=== PATIENT | male | born 1975 | race Two or more races ===

== ENCOUNTER 2020-05-08 08:00 | Outpatient (REF) | payer OTHER, SELFPAY ==
[2020-05-08 08:45] LABS: COVID-19 Test Negative (Negative)
== END 2020-05-08 08:01 | disposition home or self-care (01) ==
LOC: HO.EMPCOV 08:00
PROVIDERS: Visit Provider Internal Medicine
DX: Z20.828 Contact with and (suspected) exposure to other viral communicable diseases (principal)
CPT/HCPCS: 87635; C9803

== ENCOUNTER 2020-05-13 08:50 | Outpatient (REF) | payer OTHER, SELFPAY ==
[2020-05-13 09:54] LABS: COVID-19 Test Negative (Negative)
== END 2020-05-13 08:51 | disposition home or self-care (01) ==
LOC: HO.EMPCOV 08:50
PROVIDERS: Visit Provider Internal Medicine
DX: Z20.828 Contact with and (suspected) exposure to other viral communicable diseases (principal)
CPT/HCPCS: 87635; C9803

== ENCOUNTER 2020-05-17 10:07 | Outpatient (REF) | payer OTHER, SELFPAY ==
[2020-05-18 11:40] LABS: COVID-19 Test Negative (Negative); IDNOW Serial# 55D5AD1C
== END 2020-05-17 10:08 | disposition home or self-care (01) ==
LOC: HO.EMPCOV 10:07
PROVIDERS: Visit Provider Internal Medicine
DX: Z20.828 Contact with and (suspected) exposure to other viral communicable diseases (principal)
CPT/HCPCS: 87635; C9803

== ENCOUNTER 2020-08-30 15:10 | Outpatient (REF) | payer OTHER, SELFPAY ==
[2020-08-30 16:07] LABS: COVID-19 Test Negative (Negative); IDNOW Serial# 55D5AD1C
== END 2020-08-30 15:11 | disposition home or self-care (01) ==
LOC: HO.EMPCOV 15:10
PROVIDERS: Visit Provider Internal Medicine
DX: Z20.822 Contact with and (suspected) exposure to COVID-19 (principal)
CPT/HCPCS: 36415; 87635; C9803

== ENCOUNTER 2024-06-27 08:34 | Emergency (ER) | payer OTHER, SELFPAY ==
[2024-06-27] VITALS (9 sets, daily range): BP systolic 112–129; BP diastolic 71–82; PULSE 85–96; RESP 16–25; TEMP 36.3–37; O2SAT 94–98; BMI 37.0
--- NOTE | ~2024-06-27 | CT_ITS ---
EXAMINATION: CT ANGIOGRAM NECK. CT ANGIOGRAM BRAIN. CLINICAL INFORMATION: Dizziness COMPARISON: None available. TECHNIQUE: Contiguous axial images through the brain from the skull base to the vertex using 5 mm collimation without the IV contrast administration. Sagittal and coronal reformatted images acquired. Continues axial images through the aortic arch to the skull base using 2 mm collimation following the IV contrast administration during the arterial phase. Total of 70 cc Omnipaque 350 strength given without reported immediate complications. Sagittal and coronal reformatted images acquired. Maximum intensity projections acquired. Vessels of the neck and vessels of the [place] included. The degree of stenosis determined by NASCET criteria. This CT examination was performed using dose optimization techniques as appropriate, variously including the following: *Automated exposure control *Adjustment of mA and/or kV according to patient size This includes techniques or standardized protocols for targeted exams where dose is matched to indication/reason for exam; i.e. extremities or head) *Use of iterative reconstruction technique DLP: 2564 mGy centimeter. FINDINGS: CT brain: No acute intracranial hemorrhage, mass effect, midline shift, hydrocephalus or herniation. Brooks-white matter differentiation is normal. Posterior cranial fossa contents demonstrated no acute intracranial hemorrhage or mass effect. There is a large retention cysts versus polyp, left maxillary sinus. Tympanic cavities and mastoid cells are aerated. Bony pelvis intact. Skull base is intact. CT angiogram aortic arch: Normal diameter. Normal patency. No focal stenosis. No intimal flap. The main branches are patent. CT angiogram neck: Right CCA: Normal patency. No focal stenosis. No intimal flap. Right ICA: Normal patency. No focal stenosis. No intimal flap. Left CCA: Normal patency. No focal stenosis. No intimal flap. Left ICA: Normal patency. No focal stenosis. No intimal flap. V1/V 2 segments: Normal patency. No focal stenosis. No intimal flap. Left vertebral artery is dominant. The origin is at the subclavian artery. CT angiogram brain: Anterior cerebral circulation: ICAs: Normal patency. No focal stenosis. No abrupt cut off. MCA's: Normal patency. No focal stenosis. No abrupt cut off. Bifurcation/trifurcation demonstrated normal vascular irregularity. ACAs: No focal stenosis. No abrupt cut off. Small caliber right A1 segment. Ophthalmic arteries: Normal patency. Anterior communicating artery: Patent. Right posterior communicating artery is patent with small caliber. Posterior cerebral circulation: V3/V4 segments: Normal patency. No focal stenosis. No abrupt cut off. No intimal flap. Right anterior inferior cerebellar and right posterior inferior cerebellar arteries demonstrated a common trunk. Left posterior inferior cerebellar artery is patent. Left anterior inferior cerebellar artery is patent with small caliber. Basilar artery: Normal patency. No focal stenosis. No intimal flap. Superior cerebellar arteries: Patent. web content director: Normal patency. No focal stenosis. No abrupt cut off. Ancillary findings: Normal patency without intraluminal filling defects within the main cerebral venous sinuses. Multilevel cervical spondylosis. Ossification of the posterior longitudinal ligament at C2-3 resulting in central spinal canal narrowing. CT/CT angio head neck IMPRESSION: No high degree stenosis or dissection, vessels of the neck. No main cerebral artery occlusion or embolus. No gross aneurysm, cerebral. Electronically signed by: Jian Manriquez MD 06/27/2024 11:59 AM EST
--- NOTE | ~2024-06-27 | XR_ITS ---
EXAMINATION: XR CHEST CLINICAL INFORMATION: chest pain COMPARISON: None available. TECHNIQUE: 2 views of the chest were obtained. FINDINGS: The cardiac, hilar, and mediastinal contours are normal. Lungs demonstrate opacity in the right middle lobe distribution suggesting pneumonia. There is loss of the right heart border. The left lung is clear. There is no pneumothorax or pleural effusion. There is no focal osseous or soft tissue abnormality. Prior fixation hardware left clavicle. Mild degenerative changes throughout the spine. XR/XR chest 2V IMPRESSION: Right middle lobe pneumonia suspected. No effusions. Left lung clear. Electronically signed by: Marino Scott MD 06/27/2024 09:21 AM [facility]
--- NOTE | 2024-06-27 08:38 | ECG_ITS ---
Test Reason : CHEST PAIN Blood Pressure : */* mmHG Vent. Rate : 87 BPM Atrial Rate : 87 BPM P-R Int : 164 ms QRS Dur : 84 ms QT Int : 354 ms P-R-T Axes : 69 -32 77 degrees QTcB Int : 425 ms Normal sinus rhythm Left axis deviation Cannot rule out Anterior infarct , age undetermined Abnormal ECG No previous ECGs available Referred By: Generic ED Physician Electronically Signed By: Ha Posadas
--- NOTE | 2024-06-27 09:24 | ED_ITS ---
HPI - Chest Pain General Chief Complaint: Chest Pain Stated Complaint: Chest pain, vomiting Time Seen by Provider: 06/27/24 09:19 Source: patient Mode of arrival: ambulatory Limitations: no limitations History of Present Illness ED Provider: CHANCE CRUZ PA-C HPI narrative: 49 year old male with pmhx significant for DM presents to the ED today for evaluation of dizziness, vomiting, and chest pain which began this morning while at work. Admits to acute onset dizziness, described as a room spinning sensation. Reports one episode of vomiting. After this resolved, he began to have sternal chest pain which has continued, prompting him to come to the ED for further evaluation. Chest pain does not radiate. Pain has been improving since onset. No clear exacerbating or reliving factors. Associated SOB. No CAD history. No hx of similar. Denies fever, chills, sore throat, palpitations, wheezing, abd pain, diarrhea, vision changes. No recent travel or long car rides. 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 Related Data Previous Rx's ?Medication ?Instructions ?Recorded clotrimazole 1 % topical cream 1 appl topical BID 2 weeks #30 10/14/21 grams mupirocin 2 % topical ointment 1 appl topical BID 7 days #15 grams 10/14/21 azithromycin 250 mg tablet See Rx Instructions PO .COMPLEX #6 06/27/24 tabs guaifenesin 200 mg tablet 200 mg PO TID PRN cough #10 tabs 06/27/24 meclizine 25 mg tablet 25 mg PO DAILY PRN dizziness #10 06/27/24 tabs Allergies Allergy/AdvReac Type Severity Reaction Status Date / Time No Known Allergies Allergy Verified 06/27/24 08:44 Review of Systems 2 Review of Systems: Constitutional: No fever, chills, fatigue, night sweats, weight changes ENT/Mouth: No ear pain, hearing loss, nasal congestion, sinus pain, rhinorrhea, sore throat Eyes: No eye pain, swelling, redness, vision changes, discharge Cardio: No palpitations, PARKER, orthopnea, peripheral edema, +chest pain Pulm: No SOB, cough, sputum, wheezing, dyspnea, hemoptysis GI: No nausea, vomiting, hematemesis, abdominal pain, diarrhea, constipation, hematochezia, melena : No irregular bleeding, dysuria, frequency, urgency, hesitancy, hematuria, flank pain, urinary flow changes, urinary incontinence or retention MSK: No back pain, neck pain, joint pain, myalgias Skin: No lesions, rashes Neuro: No weakness, numbness, paresthesias, LOC, dizziness, headache Psych: No anxiety/panic, depression, SI/HI, AH/VH All other systems reviewed and are negative. [facility] Past Medical History Attestation statement: The following information was validated with the patient. Source: old records reviewed and nursing notes reviewed Social History Social History Smoked in Last 30 Days: No Use of substances other than those prescribed or required for medical reasons: No Advance Directives: Yes Advance Directives Information Provided: Yes Advance Directives on File: No Physical Exam 2 Vital Signs: Vital Signs: Last Vital Signs Temp 98.4 F 06/27/24 12:27 Pulse 87 06/27/24 12:27 Resp 18 06/27/24 12:27 BP 125/71 06/27/24 12:27 Pulse Ox 97 06/27/24 12:27 O2 Del Method Room Air 06/27/24 12:27 BMI result Body Mass Index 37.0 vital signs stable, afebrile. not hypoxic. General: Well appearing, in no acute distress. Skin: Warm, dry, intact. No rashes or lesions. Head: Normocephalic, atraumatic. EENT: Hearing is intact b/l. Conjunctiva clear. PERRLA. EOM intact. Moist mucous membranes.? Neck: Supple without LAD Cardiac: Chest wall symmetric. RRR. no peripheral edema. Lungs: Normal respiratory effort without accessory muscle use. CTA bilaterally. No rales, rhonchi, or wheezes.? Abdomen: Soft, non-tender, non-distended Back: No midline spinous or paraspinal tenderness. No step off deformity. Ext: Upper and lower extremities atraumatic, without tenderness, deformity, swelling or erythema. Full ROM throughout. Neuro: AOx3. Normal speech. Strength 5/5 intact throughout. Sensation intact to light touch. NV intact distally. finger to nose intact. heel to chapa intact. Ambulating with steady gait. Psych: Appropriate mood and affect. Responds appropriately to questions. NIH Stroke Scale Internal: Initial- Upon Arrival Time: 09:30 Level of Consciousness: Alert Level of Consciousness Questions: Answers both questions correctly Level of Consciousness Commands: Performs both tasks correctly Best Gaze: Normal Visual: No visual loss Facial Palsy: Normal Motor Arm (Right): No drift Motor Arm (Left): No drift Motor Leg (Right): No drift Motor Leg (Left): No drift Limb Ataxia: Absent Sensory: Normal Best Language: No aphasia Dysarthia: Normal Extinction and Inattention: No abnormality Score: 0 Course Course Course Narrative: CBC with leukocytosis to 15.4, left shift. No anemia. H&H stable. Chemistry without acute electrolyte abnormality requiring intervention. Random glucose 235. Patient is diabetic. Will give 1 L of IV fluids. No CAM. Troponin WNL x2. liver function wnl. he tested negative for covid, flu, rsv. his cxr demonstrates opacity to right middle lobe, consistent with pneumonia. EKG shows normal sinus rhythm with a rate of 87 beats per minute, there are no acute ischemic changes or ST elevations. Orthostatic vitals negative > patient trialed 1 L of fluids + meclizine and reported significant improvement in symptoms. No longer feeling dizzy. Ambulating about the ED with steady gait. CT angio of his head and neck does not demonstrate bleed or ischemia. No significant stenosis. I do not feel as though MRI is warranted at this time as current imaging is negative, exam is benign, and symptoms have resolved. Will treat pneumonia with azithromycin and guaifenesin. Patient agreeable. Patient has remained stable throughout ED visit today. Discussed worrisome signs and symptoms and when to return to the ED. All questions answered at this time. Patient is agreeable with disposition and stable for discharge. Medications Administered Discontinued Medications Generic Name Dose Route Start Last Admin Trade Name Freq PRN Reason Stop Dose Admin Sodium Chloride 1,000 mls @ 999 mls/hr 06/27/24 11:15 06/27/24 13:26 Ns IV 06/27/24 12:15 Infused .Q1H1M SEBAS Infusion Iohexol 100 ml 06/27/24 11:20 06/27/24 11:21 Iohexol 350 Mg/Ml 100 Ml Infus..Btl IV 06/27/24 11:21 70 ml ONCE ONE Administration Ketorolac Tromethamine 30 mg 06/27/24 09:31 06/27/24 09:41 Ketorolac Tromethamine 30 Mg/Ml Vial IM 06/27/24 09:32 30 mg ONCE ONE Administration Meclizine HCl 25 mg 06/27/24 11:02 06/27/24 11:14 Meclizine Hcl 25 Mg Tablet PO 06/27/24 11:03 25 mg ONCE ONE Administration Ondansetron HCl 4 mg 06/27/24 09:32 06/27/24 09:42 Ondansetron Odt 4 Mg Tab.Rapdis TRANSLINGU 06/27/24 09:33 4 mg ONCE ONE Administration Medical Decision Making Medical Decision Making [facility] Narrative: 49 year old male with pmhx significant for DM presents to the ED today for evaluation of dizziness, vomiting, and chest pain which began this morning while at work. Vital signs stable. Afebrile. He is nontoxic-appearing and in no acute distress. Cerebellum is intact. Exam is nonfocal. A/O x3. He is ambulating with steady gait. Lungs are CTA b/l, no rales or wheezes. no respiratory distress. rrr. no tenderness to palpation of chest wall. no deformity or crepitus. History without high risk features (no exertional component, not relieved with rest).? Minimal CAD risk factors. Exam without evidence of volume overload. EKG without signs of active ischemia. HEART score: 2.? Given the timing of pain to ED presentation, plan to send delta troponin to evaluate for NSTEMI. Differential diagnosis also inclues anemia, electrolyte abnormality, dehydration, orthostatic hypotension, hypoglycemia, arrhythmia, pneumonia, cerebellar stroke, vertigo. Presentation not consistent with acute PE, pneumothorax, thoracic aortic dissection, cardiac effusion or tamponade, CVA/TIA Plan: labs, troponin, EKG, CXR, pain control, reassessment Differential Diagnosis Differential Diagnoses: The differential diagnosis associated with the presentation includes as above. Admission/Observation not indicated. Lab Data [facility] Lab Attestation statement: I reviewed the patient's lab results. as above. 06/27/24 09:37 06/27/24 09:37 Labs: Lab Results 06/27/24 06/27/24 06/27/24 Range/Units 09:37 11:40 13:01 WBC 15.4 H (4.8-10.8) X10*3/uL RBC 5.59 (4.60-5.80) X10*6/uL Hgb 17.2 (14.0-18.0) g/dl Hct 48.6 (42.0-52.0) % MCV 86.9 (80.0-98.0) fL MCH 30.8 (27.0-33.0) pg MCHC 35.4 (31.0-36.0) g/dl RDW 13.0 (11.0-16.0) % Plt Count 217 (160-400) X10*3/uL MPV 10.9 (9.4-12.4) fL Immature Gran % (Auto) 0.9 H (0.0-0.4) % Neut % (Auto) 86.9 H (45-73) % Lymph % (Auto) 4.0 L (20-40) % [place] % (Auto) 7.0 (2-11) % Eos % (Auto) 0.9 (0-4) % Baso % (Auto) 0.3 (0-2) % Lymph # (Auto) 0.6 L (1.2-4.9) X10*3/uL [place] # (Auto) 1.1 (0.1-1.2) X10*3/uL Eos # (Auto) 0.1 (0.0-0.4) X10*3/uL Baso # (Auto) 0.1 (0.0-0.2) X10*3/uL Abs Immat Gran (auto) 0.14 H (0.00-0.03) X10*3/uL Absolute Neuts (auto) 13.3 H (2.0-8.3) x10*3/uL Absolute Nucleated RBC 0.000 (0.0-0.012) X10*3/uL Nucleated RBC % (auto) 0.0 (0.0-0.2) /100WBC Sodium 138 (135-145) mmol/L Potassium 4.4 (3.3-5.1) mmol/L Chloride 107 (96-108) mmol/L Carbon Dioxide 23 (22-29) mmol/L Anion Gap 12 (12-20) BUN 14 (9-16) mg/dL Creatinine 0.75 (0.5-1.4) mg/dL Estim Creat Clear Calc 153.7 Estimated GFR > 60 Random Glucose 235 H (60-115) mg/dL Calcium 8.8 (8.4-10.2) mg/dL Total Bilirubin 0.8 (0.0-1.0) mg/dL AST 21 (5-37) U/L ALT 35 (0-40) U/L Alkaline Phosphatase 70 (39-117) U/L Troponin I High Sens < 2.7 < 2.7 (<3.5-35.0) ng/L Total Protein 6.7 (6.5-8.0) g/dL Albumin 4.1 (3.5-5.0) g/dL Urine Color Yellow Urine Appearance Clear Urine pH 5.0 (5.0-9.0) Ur Specific [place] >= 1.030 H (1.005-1.025) Urine Protein Negative (Neg-Trace) mg/dL Urine Glucose (UA) >=1000 H (Negative) mg/dL Urine Ketones Trace (Negative) mg/dL Urine Blood Negative (Negative) Urine Nitrite Negative (Negative) Ur Leukocyte Esterase Negative (Negative) Urine RBC 0-2 (0-2) /HPF Urine WBC 0-5 (0-5) /HPF Ur Squamous Epith Cells 0-2 (0-2) /HPF Urine Bacteria None Seen (None Seen) Hyaline Casts 0-2 (0-2) /LPF Influenza Type A (PCR) NEGATIVE (Negative) Influenza Type B (PCR) NEGATIVE (Negative) RSV RNA Qual (PCR) NEGATIVE (Negative) SARS-CoV-2 RNA (RT-PCR) NEGATIVE (Negative) Independent Interpretation I performed an independent interpretation of an: EKG, Plain X-Ray and CT Scan Interpretation: EKG showing normal sinus rhythm with a rate of 87 beats per minute, QT 354, QTC 425, left axis deviation, no acute ischemic changes or ST elevations. Chest x-ray showing middle lobe opacity CT/ CTA head/neck without bleed or ischemia Radiology Impression Discussion of test interpretation with radiology: I have reviewed the radiologist's reading. Radiologist Impression: Ordering Physician: Jose Gonzales MD Date of Service: 06/27/24 Procedure(s): XR chest 2V Accession Number(s): [id number] cc: EN GIFFORD MD; Jose Gonzales MD~ EXAMINATION: XR CHEST CLINICAL INFORMATION: chest pain COMPARISON: None available. TECHNIQUE: 2 views of the chest were obtained. FINDINGS: The cardiac, hilar, and mediastinal contours are normal. Lungs demonstrate opacity in the right middle lobe distribution suggesting pneumonia. There is loss of the right heart border. The left lung is clear. There is no pneumothorax or pleural effusion. There is no focal osseous or soft tissue abnormality. Prior fixation hardware left clavicle. Mild degenerative changes throughout the spine. XR/XR chest 2V IMPRESSION: Right middle lobe pneumonia suspected. No effusions. Left lung clear. Electronically signed by: Marino Scott MD 06/27/2024 09:21 AM [facility] EXAMINATION: CT ANGIOGRAM NECK. CT ANGIOGRAM BRAIN. CLINICAL INFORMATION: Dizziness COMPARISON: None available. TECHNIQUE: Contiguous axial images through the brain from the skull base to the vertex using 5 mm collimation without the IV contrast administration. Sagittal and coronal reformatted images acquired. Continues axial images through the aortic arch to the skull base using 2 mm collimation following the IV contrast administration during the arterial phase. Total of 70 cc Omnipaque 350 strength given without reported immediate complications. Sagittal and coronal reformatted images acquired. Maximum intensity projections acquired. Vessels of the neck and vessels of the [place] of [place] included. The degree of stenosis determined by NASCET criteria. This CT examination was performed using dose optimization techniques as appropriate, variously including the following: *Automated exposure control *Adjustment of mA and/or kV according to patient size This includes techniques or standardized protocols for targeted exams where dose is matched to indication/reason for exam; i.e. extremities or head) *Use of iterative reconstruction technique DLP: 2564 mGy centimeter. FINDINGS: CT brain: No acute intracranial hemorrhage, mass effect, midline shift, hydrocephalus or herniation. Brooks-white matter differentiation is normal. Posterior cranial fossa contents demonstrated no acute intracranial hemorrhage or mass effect. There is a large retention cysts versus polyp, left maxillary sinus. Tympanic cavities and mastoid cells are aerated. Bony pelvis intact. Skull base is intact. CT angiogram aortic arch: Normal diameter. Normal patency. No focal stenosis. No intimal flap. The main branches are patent. CT angiogram neck: Right CCA: Normal patency. No focal stenosis. No intimal flap. Right ICA: Normal patency. No focal stenosis. No intimal flap. Left CCA: Normal patency. No focal stenosis. No intimal flap. Left ICA: Normal patency. No focal stenosis. No intimal flap. V1/V 2 segments: Normal patency. No focal stenosis. No intimal flap. Left vertebral artery is dominant. The origin is at the subclavian artery. CT angiogram brain: Anterior cerebral circulation: ICAs: Normal patency. No focal stenosis. No abrupt cut off. MCA's: Normal patency. No focal stenosis. No abrupt cut off. Bifurcation/trifurcation demonstrated normal vascular irregularity. ACAs: No focal stenosis. No abrupt cut off. Small caliber right A1 segment. Ophthalmic arteries: Normal patency. Anterior communicating artery: Patent. Right posterior communicating artery is patent with small caliber. Posterior cerebral circulation: V3/V4 segments: Normal patency. No focal stenosis. No abrupt cut off. No intimal flap. Right anterior inferior cerebellar and right posterior inferior cerebellar arteries demonstrated a common trunk. Left posterior inferior cerebellar artery is patent. Left anterior inferior cerebellar artery is patent with small caliber. Basilar artery: Normal patency. No focal stenosis. No intimal flap. Superior cerebellar arteries: Patent. etl informatica developer: Normal patency. No focal stenosis. No abrupt cut off. Ancillary findings: Normal patency without intraluminal filling defects within the main cerebral venous sinuses. Multilevel cervical spondylosis. Ossification of the posterior longitudinal ligament at C2-3 resulting in central spinal canal narrowing. CT/CT angio head neck IMPRESSION: No high degree stenosis or dissection, vessels of the neck. No main cerebral artery occlusion or embolus. No gross aneurysm, cerebral. Electronically signed by: Jian Manriquez MD 06/27/2024 11:59 AM [facility] Independent Historian Clinical information obtained from an independent historian. History obtained from or confirmed by: Spouse External Record Review External record reviewed: Inpatient record Prescription Management I considered prescription management with: Antibiotic (Azithromycin) and Other (Guaifenesin, meclizine) Social Determinants Patient?s care significantly limited by Social Determinants of Health including: Other Social Determinant of Health Critical Care Time Critical Care Time Critical Care Time: No Discharge Plan Discharge Clinical Impression: Community acquired pneumonia Patient Disposition: Home, Self-Care Instructions: Community Acquired Pneumonia (ED) Additional Instructions: Your blood work today is reassuring. Your chest x-ray shows pneumonia within your right middle lobe. The EKG of your heart is normal. The CT scan of your head/neck is normal. Your symptoms improved with medications today. Treatment of pneumonia requires antibiotic therapy. Azithromycin is an antibiotic that has been sent to your pharmacy for treatment. Take this as directed over the next 5 days. Guaifenesin is cough medicine that has been sent to your pharmacy. Take this as needed for cough. Follow up with your PCP in 3-4 weeks for repeat imaging to ensure resolution of pneumonia. I have also sent meclizine to your pharmacy for you to take as needed for dizziness. Return with any new or worsening symptoms. In the case of an emergency call 911 Prescriptions: New meclizine 25 mg tablet 25 mg PO DAILY PRN (Reason: dizziness) Qty: 10 0RF azithromycin 250 mg tablet See Rx Instructions .ROUTE .COMPLEX Qty: 6 0RF Rx Instructions: For 250 mg dose pack: take 500 mg today (day 1), then 250 mg for 4 days (days 2-5) guaifenesin 200 mg tablet 200 mg PO TID PRN (Reason: cough) Qty: 10 0RF No Action clotrimazole 1 % cream 1 appl topical BID 14 Days Qty: 30 0RF mupirocin 2 % ointment 1 appl topical BID 7 Days Qty: 15 0RF Referrals: [facility] Family [facility] [Provider Group] [facility] [Provider Group] [facility] [Provider Group] Stand Alone Forms: Work/School Release Print Language: Mosotho
[2024-06-27] MEDS: Ketorolac Tromethamine 30 MG/ML VIAL IM (09:41)
[2024-06-27] MEDS: Ondansetron ODT 4 MG TAB.RAPDIS TRANSLINGU (09:42)
[2024-06-27 09:43] LABS: MANUAL DIFF FLAG NO
--- NOTE | 2024-06-27 09:45 | PC.NURSE ---
Labs drawn/sent. Pt medicated per AUG.
[2024-06-27 09:51] LABS: Basophils Absolute Auto 0.1 X10*3/uL (0.0-0.2); Basophils Percent Auto 0.3 % (0-2); Eosinophils Absolute Auto 0.1 X10*3/uL (0.0-0.4); Eosinophils Percent Auto 0.9 % (0-4); Hematocrit 48.6 % (42.0-52.0); Hemoglobin 17.2 g/dl (14.0-18.0); Imm Gran Abs Auto 0.14 X10*3/uL (0.00-0.03); Imm Gran Pct Auto 0.9 % (0.0-0.4); Lymphocytes Absolute Auto 0.6 X10*3/uL (1.2-4.9); Mean Corpuscular HGB Conc 35.4 g/dl (31.0-36.0); Mean Corpuscular Hemoglobin 30.8 pg (27.0-33.0); Mean Corpuscular Volume 86.9 fL (80.0-98.0); Mean Platelet Volume 10.9 fL (9.4-12.4); Monocytes Absolute Auto 1.1 X10*3/uL (0.1-1.2); Neutrophils Absolute Auto 13.3 x10*3/uL (2.0-8.3); Neutrophils Percent Auto 86.9 % (45-73); Platelet Count 217 X10*3/uL (160-400); Red Blood Count 5.59 X10*6/uL (4.60-5.80); White Blood Count 15.4 X10*3/uL (4.8-10.8)
[2024-06-27 10:02] LABS: Alanine Aminotransferase 35 U/L (0-40); Albumin Level 4.1 g/dL (3.5-5.0); Alkaline Phosphatase 70 U/L (39-117); Anion Gap 12 (12-20); Aspartate Amino Transferase 21 U/L (5-37); Bilirubin Total 0.8 mg/dL (0.0-1.0); Blood Urea Nitrogen 14 mg/dL (9-16); Calcium 8.8 mg/dL (8.4-10.2); Carbon Dioxide 23 mmol/L (22-29); Chloride 107 mmol/L (96-108); Creatinine Clr Calc Pharmacy 153.7; Estimated Glomerular Filt Rate > 60; Glucose Random 235 mg/dL (60-115); Potassium 4.4 mmol/L (3.3-5.1); Sodium 138 mmol/L (135-145); Total Protein 6.7 g/dL (6.5-8.0)
[2024-06-27 10:10] LABS: Troponin-I High Sensitivity < 2.7 ng/L (<3.5-35.0)
--- NOTE | 2024-06-27 10:25 | PC.NURSE ---
Pt reports continued nausea, dizziness. MAVERICK Marion made aware.
[2024-06-27 10:31] LABS: Influenza A PCR NEGATIVE (Negative); Influenza B PCR NEGATIVE (Negative); Resp Syncy Virus RNA Qual PCR NEGATIVE (Negative); SARS COV2 PCR INHOUSE NEGATIVE (Negative)
[2024-06-27] MEDS: 0.9 % Sodium Chloride 1,000 ML 999 ML IV (11:11)
[2024-06-27] MEDS: Meclizine HCl 25 MG TABLET PO (11:14)
--- NOTE | 2024-06-27 11:15 | PC.NURSE ---
Pt to CT Scan.
[2024-06-27] MEDS: iohexoL 350 MG/ML 100 ML INFUS..BTL IV (11:21)
--- NOTE | 2024-06-27 11:44 | PC.NURSE ---
Pt ambulatory to BR with a steady gait to provide urine sample.
[2024-06-27 11:46] LABS: Appearance Urine Clear; Color Urine Yellow; Glucose Urine UA >=1000 mg/dL (Negative); Leukocyte Esterase Urine Negative (Negative); Nitrite Urine Negative (Negative); Specific Gravity - Urine >= 1.030 (1.005-1.025); UMIC TRIGGER UACC YES; Urine Blood Negative (Negative); Urine Ketones Trace mg/dL (Negative); Urine Protein Negative (Neg-Trace)
[2024-06-27 11:50] LABS: Bacteria Urine None Seen (None Seen); Hyaline Casts Urine 0-2 /LPF (0-2); RBC Urine 0-2 /HPF (0-2); Squamous Epithelial Cell Urine 0-2 /HPF (0-2); WBC Urine 0-5 /HPF (0-5)
[2024-06-27 13:35] LABS: Troponin-I High Sensitivity < 2.7 ng/L (<3.5-35.0)
== END 2024-06-27 14:02 | disposition home or self-care (01) ==
PROVIDERS: Physician Assistant Medical; Emergency Provider Emergency Medicine; PCP Internal Medicine
DX: J18.8 Other pneumonia, unspecified organism (principal); E11.9 Type 2 diabetes mellitus without complications; R07.9 Chest pain, unspecified; R29.700 NIHSS score 0; Z79.899 Other long term (current) drug therapy; Z03.818 Encounter for observation for suspected exposure to other biological agents ruled out
CPT/HCPCS: 0241U; 36415; 70496; 70498; 71046; 80053; 81001; 84484; 85025; 93005; 96360; 96361; 96372; 99284; 99285; J1885; Q9967

== ENCOUNTER → 2024-06-27 08:38 | Outpatient (BNV) | payer OTHER, SELFPAY | PROVIDERS: Emergency Provider Emergency Medicine; PCP Internal Medicine; Visit Provider Internal Medicine Cardiovascular Disease | DX: R94.31 Abnormal electrocardiogram [ECG] [EKG] (principal) | CPT/HCPCS: 93010 ==

== ENCOUNTER → 2024-06-27 09:10 | Outpatient (BNV) | payer OTHER, SELFPAY | PROVIDERS: Emergency Provider Emergency Medicine; PCP Internal Medicine; Visit Provider Radiology Diagnostic Radiology | DX: R42 Dizziness and giddiness (principal); R07.9 Chest pain, unspecified | CPT/HCPCS: 70496; 70498; 71046 ==